=== PATIENT | male | born 1965 | race Caucasian/White ===

== ENCOUNTER 2019-03-14 08:40 | Emergency (ER) | payer OTHER ==
--- OUTSIDE RECORDS SUMMARY | 2019-03-14 08:51 | XMS REPORT | Summary of Care ---
:1965 Author Organization [facility] Address [address] [facility] [place] [address] Care Team Providers Name Role Phone Andriy Harris Primary Care Provider Reason for Visit Reason Comments Knee Pain Encounter Details Date Type Department Care Team Description 02/04/2019 Office Visit [facility] Daniela Swanson, PT Primary osteoarthritis - [place] [facility] [address] [place] [address] of left knee (Primary Therapy [address]) [address] [place] [address] [address] [phone] [place] [address] Allergies No Known Allergiesdocumented as of this encounter (statuses as of 02/04/2019) Medications No known medicationsdocumented as of this encounter (statuses as of 02/04/2019) Active Problems Problem Noted Date Family history of diabetes mellitus in father 08/14/2018 BMI 32.0-32.9,adult 08/14/2018 Primary osteoarthritis of left knee 10/19/2017 S/P arthroscopy of left knee 09/05/2016 S/P lateral meniscectomy of left knee 08/17/2016 Current tear of lateral cartilage or meniscus of knee 07/31/2016 Acute pain of right knee 05/08/2016 Traumatic tear of medial meniscus of right knee 05/08/2016 Complex tear of medial meniscus of left knee as current injury 05/05/2016 Acute pain of left knee 03/22/2016 Mixed hyperlipidemia 12/19/2010 documented as of this encounter (statuses as of 02/04/2019) Social History Tobacco Use Types Packs/Day Years Used Date Never Smoker Smokeless Tobacco: Never Used Alcohol Use Drinks/Week oz/Week Comments Yes 0 Standard drinks or equivalent 0.0 1-2 beers/mo Sex Assigned at Date Recorded Not on file Job Start Date Occupation Industry Not on file Not on file Not on file Travel History Travel Start Travel End No recent travel history available. documented as of this encounter Last Filed Vital Signs Not on filedocumented in this encounter Progress Notes Daniela Swanson, PT - 02/04/2019 3:00 PM EDT [facility] Treatment Note Outpatient Physical Therapy [facility] [address] [place] [phone] Treatment Number: 35 Referring Physician: Ella Perry Primary Diagnosis: ICD-9-CM ICD-10-CM 1. Primary osteoarthritis of left knee 715.16 M17.12 Time In: 0300 Time Out: 0330 Total Session Minutes: 30 Pain at Start of Care: 06/09 Pain at End of Care: 05/09 Subjective Comments: Last weekend pain started to radiate from back of leg down the malagon. Sometimesis hard to get up from sitting but once he moves around it improves. Interventions: Therapeutic Exercises (02321) Total Minutes (all Therapeutic Exercise): 10 Exercise #1 Exercise Name: gastroc stretch Reason for Exercise: Flexibility Location/Body Area: Ankle Sets/Reps: 3 Exercise #2 Exercise Name: hamstring/gastroc stretch Reason for Exercise: Flexibility Location/Body Area: Knee Sets/Reps: 3x30 seconds Manual Therapy (80761) Soft Tissue Mobilization: Manual Tissue Mobilization Soft Tissue Mobilization Details: DTM to adductors, VMO, annd gastrocs Joint Mobilization: patellar mobs Total Minutes (All Manual Therapy): 15 Modalities Modalities Needed?: Ultrasound Ultrasound (79239) Reason for Use: soft tissue extensibility Body Area: knee Frequency: 1.0 MHz Frequency Description: Continuous Intensity: 1 Total Minutes: 5 minutes Assessment: Patient demonstrates decreased hamstring and gastroc length with posterior swelling. Patient is going to start stretching more consistently but if no improvement follow up with physician Patient also reports ongoing difficulty in position changes, prolong walking, squatting, stairs. Skilled Physical Therapy services are required to address ongoing functional and objective limitations/impairments including decreased knee ROM, decreased LE flexibility, decreased quad/ateral hip strength. Plan for Next Visit: Continue per POC. Total UNTIMED Code Treatment Minutes: Total TIMED Code Treatment Minutes: 30 Total Treatment Minutes: 30 Author: Daniela Swanson, PT 02/04/2019 15:43 documented in this encounter Plan of Treatment Date Type Specialty Care Team Description 02/25/2019 Office Visit Physical Therapy Daniela Swanson, PT [address] [place] [address] [phone] Health Maintenance Due Date Last Done Comments DEPRESSION SCREENING 1975 ZOSTER IMMUNIZATION SERIES 2013 (1 of 2) INFLUENZA VACCINE (#1) 2018 DIABETES SCREENING 08/15/2019 08/14/2018, 09/22/2017, 05/23/2017, Additional history exists LIPID DISORDER SCREENING 08/15/2023 08/14/2018, 09/22/2017, 05/23/2017, Additional history exists COLONOSCOPY SCREENING 12/15/2024 12/15/2014 HEPATITIS C SCREENING Completed 11/11/2014 HPV IMMUNIZATION SERIES Aged Out No longer eligible based on patient's age to complete this topic MENINGOCOCCAL VACCINE IMM Aged Out No longer eligible based on patient's age to complete this topic PNEUMOCOCCAL 0-64 YRS Aged Out No longer eligible based on patient's age to complete this topic documented as of this encounter Results Not on filedocumented in this encounter Visit Diagnoses Diagnosis Primary osteoarthritis of left knee - Primary Primary localized osteoarthrosis, lower leg documented in this encounter Insurance Payer Benefit Plan / Subscriber ID Effective Dates Phone Address Type Group [employer] x[employer]xxx 2014-Present [employer] PPO Guarantor Name Account Type Relation to Date of Phone Billing Address Patient HakeemMc Personal/Family 1965 [address] (Home) [place], [place] [phone] (Work) documented as of this encounter
--- OUTSIDE RECORDS SUMMARY | 2019-03-14 08:51 | XMS REPORT | Summary of Care ---
:1965 Author Organization [facility] Address [address] [place] [address] Care Team Providers Name Role Phone Andriy Harris MD Primary Care Provider Reason for Visit Reason Comments Knee Pain Encounter Details Date Type Department Care Team Description 01/14/2019 Office Visit [facility] Daniela Swanson, PT Primary osteoarthritis - [facility] [address] [place] [address] of left knee (Primary Therapy [address]) [address] [place] [address] [address] [phone] [place] [address] Allergies No Known Allergiesdocumented as of this encounter (statuses as of 01/14/2019) Medications No known medicationsdocumented as of this encounter (statuses as of 01/14/2019) Active Problems Problem Noted Date Family history [...] as of this encounter (statuses as of 01/14/2019) Social History Tobacco Use Types Packs/Day Years [...] encounter Progress Notes Daniela Swanson, PT - 01/14/2019 2:30 PM EDT [facility] Treatment Note Outpatient Physical Therapy [facility] PHYSICAL THERAPY [address] [place] [phone] Treatment Number: 34 Referring Physician: Ella Perry Primary Diagnosis: ICD-9-CM ICD-10-CM 1. Primary osteoarthritis of left knee 715.16 M17.12 Time In: 224 Time Out: 0255 Total Session Minutes: 30 Pain at Start of Care: 06/09 Pain at End of Care: 05/09 Subjective Comments: Is feeling stiff. Feels like he is having more popping when he goes to straighten his knee. Normally feels better after it pops. Is not icing of wearing brace. Interventions: Therapeutic Exercises (17004) Total Minutes (all Therapeutic Exercise): 10 Exercise #2 Exercise Name: hamstring/gastroc stretch Reason for Exercise: Flexibility Location/Body Area: Knee Sets/Reps: 3x30 seconds Manual Therapy (85875) Soft Tissue Mobilization: Manual Tissue Mobilization Soft Tissue Mobilization Details: DTM to adductors, VMO, annd gastrocs Joint Mobilization: patellar mobs Total Minutes (All Manual Therapy): 15 Modalities Modalities Needed?: Ultrasound Ultrasound (64816) Reason for Use: soft tissue extensibility Body Area: knee Frequency: 1.0 MHz Frequency Description: Continuous Intensity: 1 Total Minutes: 5 minutes Assessment: Patient demonstrates tightness in gastrocs and hamstrings with pain with palpation to the VMO. Is going to do more stretching at home. Patient also reports ongoing difficulty in prolongedpositions, walking, stairs. Skilled Physical Therapy services are required to address ongoing functional and objective limitations/impairments including decreased knee AROM, decreased LE flexibility, pain/inflammation. Plan for Next Visit: Continue per POC. Hamstring and gastroc stretch. Total UNTIMED Code Treatment Minutes: Total TIMED Code Treatment Minutes: 30 Total Treatment Minutes: 30 Author: Daniela Swanson, PT 01/14/2019 15:33 documented in this encounter Plan of Treatment Date Type Specialty Care Team Description 02/04/2019 Office Visit Physical Therapy Daniela Swanson, PT [address] [place] [address] [phone] Health Maintenance Due Date Last Done Comments [...] HakeemMc Personal/Family 1965 [address] (Home) [place], [place] [phone] (Work) documented as of this encounter
--- OUTSIDE RECORDS SUMMARY | 2019-03-14 08:51 | XMS REPORT | Summary of Care ---
:1965 Author Organization [facility] Address [address] [facility] [place] [address] Care Team Providers Name Role Phone Andriy Harris Primary Care Provider Reason for Visit Reason Comments Knee Pain Encounter Details Date Type Department Care Team Description 02/25/2019 Office Visit [facility] Daniela Swanson, PT Primary osteoarthritis - [place] [facility] [address] [place] [address] of left knee (Primary Therapy [address]) [address] [place] [address] [address] [phone] [place] [address] Allergies No Known Allergiesdocumented as of this encounter (statuses as of 02/25/2019) Medications No known medicationsdocumented as of this encounter (statuses as of 02/25/2019) Active Problems Problem Noted Date Family history [...] as of this encounter (statuses as of 02/25/2019) Social History Tobacco Use Types Packs/Day Years [...] encounter Progress Notes Daniela Swanson, PT - 02/25/2019 3:30 PM EDT [facility] Treatment Note Outpatient Physical Therapy Services [facility] PH[facility] TH[facility] [address] [place] [phone] Treatment Number: 36 Referring Physician: Ella Perry Primary Diagnosis: ICD-9-CM ICD-10-CM 1. Primary osteoarthritis of left knee 715.16 M17.12 Plan of Care Expiration Date: Time In: 329 Time Out: 0400 Total Session Minutes: 30 Pain at Start of Care: 2/10 Pain at End of Care: 0/10 Subjective Comments: Posterior knee pain is better since he started stretching more. Knee still feels full by the end of the day. Descending hills and stairs increases pain. Interventions: Therapeutic Exercises (73258) Total Minutes (all Therapeutic Exercise): 10 Manual Therapy (23463) Soft Tissue Mobilization: Manual Tissue Mobilization Soft Tissue Mobilization Details: DTM to adductors, VMO, annd gastrocs Joint Mobilization: patellar mobs Total Minutes (All Manual Therapy): 15 Modalities Modalities Needed?: Ultrasound Ultrasound (96621) Reason for Use: soft tissue extensibility Body Area: knee Frequency: 1.0 MHz Frequency Description: Continuous Intensity: 1 Total Minutes: 5 minutes Assessment: Patient demonstrates decreased hip flexor, quad, and hamstring length. Responds well totreatment. Patient also reports ongoing difficulty in hills, work, squatting, high steps. Skilled Physical Therapy services are required to address ongoing functional and objective limitations/impairments including decreased knee ROM, decreased flexibility, impaired VMO and lateral hip strength. Plan for Next Visit: Continue per POC. Review terminal knee extension Total UNTIMED Code Treatment Minutes: Total TIMED Code Treatment Minutes: 30 Total Treatment Minutes: 30 Author: Daniela Swanson, PT 02/25/2019 17:03 documented in this encounter Plan of Treatment Health Maintenance Due Date Last Done Comments [...] to Date of Phone Billing Address Patient Mc Palacio Personal/Family 1965 [address] (Home) [place], [place] [phone] (Work) documented as of this encounter
[2019-03-14 08:54] VITALS: BP 151/105
[2019-03-14] MEDS ORDERED: Tetan/Diph/Pertus SYR(Tdap)* 0.5 ML SYR(BOOSTRIX) use SYR contains LATEX IM ONE (09:05)
--- NOTE | 2019-03-14 09:18 | UC ---
Laceration HPI - HPI Summary HPI Summary: WHILE AT WORK TODAY CAUGHT HIS DISTAL RIGHT FOURTH FINGER IN A METAL GRATE. HAS A SMALL LACERATION. UNKNOWN DATE OF LAST TETANUS - History Of Current Complaint Chief Complaint: UCLaceration Stated Complaint: FINGER LAC Time Seen by Provider: 03/14/19 09:05 Hx Obtained From: Patient Laceration Location: Finger - RIGHT 4TH Mechanism Of Injury: Blunt Trauma Onset/Duration: Sudden Onset, Lasting Minutes, Still Present Severity: Moderate Pain Intensity: 4 Pain Scale Used: 0-10 Numeric Aggravating Factors: Nothing Related History: Occupational Injury, Dominant Hand Right - Allergies/Home Medications Allergies/Adverse Reactions: Allergies Allergy/AdvReac Type Severity Reaction Status Date / Time No Known Allergies Allergy Verified 03/14/19 08:54 Home Medications: Home Medications NK [No Home Medications Reported] 03/14/19 [History Confirmed 03/14/19] PMH/Surg Hx/FS Hx/Imm Hx Previously Healthy: Yes - Surgical History Surgical History: None - Family History Known Family History: Positive: Diabetes - Social History Alcohol Use: Occasionally Substance Use Type: None Smoking Status (MU): Never Smoked Tobacco - Immunization History Most Recent Influenza Vaccination: 2014 Most Recent Tetanus Shot: unknown Most Recent Pneumonia Vaccination: never Review of Systems All Other Systems Reviewed And Are Negative: Yes Constitutional: Positive: Negative Skin: Positive: Other - FLAP LACERATION DISTAL RIGHT 4TH FINGER Respiratory: Positive: Negative Cardiovascular: Positive: Negative Gastrointestinal: Positive: Negative Musculoskeletal: Positive: Decreased ROM, Edema Physical Exam Triage Information Reviewed: Yes Appearance: Well-Appearing, No Pain Distress, Well-Nourished Vital Signs: Initial Vital Signs Temp 98.6 F 03/14/19 08:51 Pulse 71 03/14/19 08:51 Resp 18 03/14/19 08:51 BP 151/105 03/14/19 08:51 Pulse Ox 97 03/14/19 08:51 Vital Signs Reviewed: Yes Eyes: Positive: Conjunctiva Clear ENT: Positive: Hearing grossly normal Neck: Positive: Supple Respiratory: Positive: No respiratory distress, No accessory muscle use Cardiovascular: Positive: Pulses Normal Abdomen Description: Positive: Soft Musculoskeletal: Positive: ROM Limited @ - RIGHT 4TH FINGER DIP, Edema @ - DISTAL RIGHT 4TH FINGER Neurological: Positive: Alert Psychological: Positive: Age Appropriate Behavior Skin: Positive: Other - 12MM X 9MM FLAP LACERATION DISTAL RIGHT 4TH FINGER Laceration Repair - Laceration Repair 1 Description: Irregular Laceration Size After Repair: Length (cm) - 1.2CM, Width (mm) - 0MM, Depth (mm) - 2MM Modified For Repair: No Cleansing Completed Via Routine Prep: Yes Closure Material: SteriStrips Diagnostics - Radiology RIGHT 4TH FINGER XRAYS Radiology Interpretation Completed By: Radiologist Summary of Radiographic Findings: Unremarkable right ring finger. Laceration Course/Dx - Course/Dx Course Of Treatment: FLAP-LIKE LACERATION TO DISTAL RIGHT FOURTH FINGER ALREADY HEALING. X-RAYS NEGATIVE FOR BONY INJURY. WOUND REINFORCED WITH STERI-STRIPS. PATIENT IS ALREADY TAKING DOXYCYCLINE FOR INSECT BITES. ADVISED TO CONTINUE THIS MEDICATION PRESCRIBED TO COMPLETE COURSE. TDAP BOOSTED. FOLLOW-UP IF NEEDED. - Diagnosis Provider Diagnosis: Laceration of right ring finger, Need for Tdap vaccination Discharge ED - Sign-Out/Discharge Documenting (check all that apply): Patient Departure All imaging exams completed and their final reports reviewed: Yes - Discharge Plan Condition: Stable Disposition: HOME Patient Education Materials: Laceration (ED) Referrals: Andriy Harris MD [Primary Care Provider] - If Needed Additional Instructions: X-RAY TODAY NEGATIVE FOR BONY INJURY. YOUR SKIN FLAP IS HEALING NICELY ALREADY. REINFORCED WITH STERI-STRIPS. CONTINUE YOUR DOXYCYCLINE PRESCRIBED THIS WILL COVER FOR INFECTION PROPHYLAXIS FOR YOUR ACUTE INJURY. THE STERISTRIPS WILL FALL OFF ON THEIR OWN IN THE NEXT 1-2 WEEKS. DO NOT PUT ANY OINTMENT ON TOP OF THEM. DO NOT SUBMERGE IN WATER FOR PROLONGED PERIOD OF TIME. OKAY FOR BRIEF SHOWER AFTER 24 HOURS AND THEN BE SURE TO ALLOW TO DRY COMPLETELY. TETANUS IMMUNIZATION GIVEN (TDAP): You have been given an immunization against tetanus. Please record this in your records. In general, a booster is needed only once every 10 years. The tetanus shot protects against tetanus or "lockjaw," which is a complication of certain wound infections (the tetanus shot cannot protect against the actual infection). The immunization site may become warm and red due to local reaction. If this occurs, apply warm compresses and take aspirin or ibuprofen to reduce inflammation and discomfort. Return for evaluation if the reaction becomes severe. - Billing Disposition and Condition Condition: STABLE Disposition: Home
== END 2019-03-14 10:10 | disposition home or self-care (01) ==
LOC: UCEAST 08:40
DX: S61.214A Laceration without foreign body of right ring finger without damage to nail, initial encounter (principal); Z23 Encounter for immunization; W23.0XXA Caught, crushed, jammed, or pinched between moving objects, initial encounter; Y92.9 Unspecified place or not applicable; Y99.0 Civilian activity done for income or pay
CPT/HCPCS: 12001; 73140; 90471; 90715; 99211; G0463